=== PATIENT | female | born 1965 | race Two or more races ===

== ENCOUNTER 2022-03-11 08:54 | Emergency (ER) | payer MEDICAID ==
[~2022-03-11] VITALS: Ht 165.1 cm; Wt 102.5 kg
[2022-03-11 09:07] VITALS: BP 147/82
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
[2022-03-11] MEDS ORDERED: ACETAMINOPHEN ES 500 MG TABLET PO ONE (09:30)
[2022-03-11] MEDS ORDERED: ACETAMINOPHEN ES 500 MG TABLET ONE (09:33)
--- NOTE | 2022-03-11 12:01 | NUR ---
Patient discharged to home in stable condition. Written and verbal after care instructions given. Patient verbalizes understanding of instruction.
== END 2022-03-11 12:02 | disposition home or self-care (01) ==
LOC: ER 08:56
DX: R07.89 Other chest pain (principal); I10 Essential (primary) hypertension
CPT/HCPCS: 70450-TC; 71045-TC